=== PATIENT | male | born 1995 | race Caucasian/White ===

== ENCOUNTER 2025-01-21 11:05 | Emergency (ER) | payer OTHER, SELFPAY ==
[2025-01-21 11:39] VITALS: BP 120/85; PULSE 75; RESP 20; TEMP 36.2; O2SAT 99
--- NOTE | 2025-01-21 15:58 | ED_ITS ---
HPI - Headache General Chief Complaint: Headache Stated Complaint: HEADACHE/DIZZY/CHILLS/SWEATS Time Seen by Provider: 01/21/25 12:00 Source: patient and RN notes reviewed Mode of arrival: ambulatory Limitations: no limitations History of Present Illness HPI Narrative: 29-year-old male presents Express Care complaining of headache, chills, congestion, for approximately 10 days. Patient denies any photophobia or phonophobia, nausea, vomiting, vision changes, blurry vision, lightheadedness, loss of consciousness, dizziness, chest pain, shortness of breath, or any other symptoms. Patient reports the headache feels like a rubber band around his head. Patient rates at a 3/10. Patient states the headache is not going away. Patient also feels chills and body aches. Patient also states that he may feel little congested but denies any mucopurulent drainage or any nasal discharge. Has been taking ibuprofen as needed for pain with some relief. Patient denies any rashes or any recent travel out of the country. Patient to go to [place] approximately 2 weeks ago and says there out hiking but denies any bug bites or tick bites. Patient said his girlfriend had similar symptoms to him as well. Patient also reports some pain behind his neck. Related Data Allergies Allergy/AdvReac Type Severity Reaction Status Date / Time No Known Allergies Allergy Verified 01/21/25 11:38 Review of Systems Review of Systems: CONSTITUTIONAL: Denies fever, chills, or sweats. EYES: Denies visual changes, redness, blurry vision, or discharge. ENT: Denies rhinorrhea,, sore throat, or otalgia. Positive for congestion. CARDIOVASCULAR: Denies chest pain, palpitations, loss of consciousness, dizziness, lightheadedness, or edema. RESPIRATORY: Denies cough or dyspnea. GASTROINTESTINAL: Denies abdominal pain, nausea, vomiting, or diarrhea. GENITOURINARY: Denies dysuria or hematuria. SKIN: Denies rash or itching. MUSCULOSKELETAL: Denies back pain, joint pain, or myalgia. NEUROLOGIC: Denies, numbness, focal weakness, slurred speech, facial droop, or weakness. Positive for headache and neck pain. PSYCHIATRIC: Denies anxiety or depression. All other systems reviewed are negative, except as documented in HPI. PMFSH Comments At the time of my signature, I reviewed and agree with the nursing past medical, surgical, social, and family history. There is no relevant family history pertinent to the patient complaint. Exam Narrative: GENERAL: This is a well-nourished, well-developed adult, in no apparent distress. They are non ill-appearing, nontoxic appearing. HEAD: normocephalic, atraumatic. EYES: Sclera clear/white. Conjunctiva normal. Vision is grossly intact. Extraocular movements intact. Pupils PERRLA. EARS: External ears normal, auditory canals clear and without drainage, TMs normal without perforation. Hearing grossly intact. NOSE: External nose normal with no obvious nasal discharge, nasal turbinates erythematous, no rhinorrhea. THROAT: Mucous membranes moist, posterior pharynx clear, without erythema or swelling. Uvula midline. NECK: Neck supple, non-tender without lymphadenopathy, masses or thyromegaly. Mild tenderness to palpation to the back of the neck. No midline tenderness, no cervical point tenderness no, no crepitus, step-offs. CARDIOVASCULAR: Regular rate and rhythm without murmurs, gallops, or rubs. RESPIRATORY: Clear to auscultation. Breath sounds equal bilaterally. No wheezes, rales, or rhonchi. SKIN: warm, Dry, intact with no suspicious lesions or rash, good texture and turgor. NEURO: awake, alert, and oriented to person, place and time. There were no obvious focal neurologic abnormalities. No pronator drift. No limb ataxia. No facial droop. Speech is clear and comprehensive. Gait is steady. EXTREMITIES: No joint tenderness, effusion, or edema noted. BACK: Nontender without deformity. No CVA tenderness. Course Course Emergency Course: Portions of this record may have been created with voice recognition software Level of Care: Express Care Visit Vital Signs Vital signs: Vital Signs Temperature 97.1 F L 01/21/25 11:39 Pulse Rate 75 01/21/25 11:39 Respiratory Rate 20 01/21/25 11:39 Blood Pressure 120/85 01/21/25 11:39 Pulse Oximetry 99 01/21/25 11:39 Oxygen Delivery Room Air 01/21/25 11:39 Temperature 97.1 F L 01/21/25 11:39 Pulse Rate 75 01/21/25 11:39 Respiratory Rate 20 01/21/25 11:39 Blood Pressure 120/85 01/21/25 11:39 Pulse Oximetry 99 01/21/25 11:39 Oxygen Delivery Room Air 01/21/25 11:39 Reviewed MDM - Headache MDM Narrative Medical decision making narrative: Patient's symptoms appear to be a tension headache, however given patient's persistent congestion go ahead and treat for sinus infection with Augmentin. Will also treat patient with ketorolac as needed for pain. Discussed physical exam findings. Advised supportive measures and signs/symptoms to go to the ER. Pt is appropriate for outpt treatment and f/u. Differential Diagnosis Differential diagnosis: Likely migraine, tension headache, headache and si nusitis Critical Care Time Critical Care Time Critical Care Time: No Discharge Plan Discharge Clinical Impression: Headache Qualifiers: Headache type: tension-type Headache chronicity pattern: acute headache Intractability: not intractable Qualified Code(s): G44.209 - Tension-type headache, unspecified, not intractable Sinusitis Qualifiers: Sinusitis location: unspecified location Chronicity: acute Recurrence: non- recurrent Qualified Code(s): J01.90 - Acute sinusitis, unspecified Patient Disposition: Home Condition: Stable Instructions: Antibiotic Form, Sinusitis (ED), Tension Headache (ED) Additional Instructions: Take the antibiotics as directed and complete the course even if you start to feel better. You may use a Neti pot saline rinse 3 times a day with lukewarm distilled water Use a humidifier or vaporizer at night. Drink plenty of water. 8-10 glasses per day. Use flonase 2 times per day for 5 days then as needed Take mucinex 2 times per day and be sure to take with 8oz of water. Follow up with Primary provider in 3-5 days Take ketorolac as directed. Start the ketorolac tomorrow. Do not combine ketorolac with any other NSAIDs such as ibuprofen, Motrin, Naprosyn, naproxen. You may also take Tylenol as needed for pain. You May take ketorolac up to 5 days. Please go to the ER if you develops any difficulty breathing, worsening symptoms, vision changes, dizziness, lightheadedness, loss of conscious, one- sided weakness, worse headache of her life, facial drooping, slurred speech, confusion or any other concerns Patient Language: Vietnamese Prescriptions: New amoxicillin-pot clavulanate 875-125 mg tablet 1 tablet PO Q12H 7 Days Qty: 14 0RF ketorolac 10 mg tablet 10 mg PO Q6H PRN (Reason: pain) 5 Days Qty: 20 0RF Rx Instructions: maximum total duration of 5 days from all oral, intranasal, or parenteral formulations Follow-up/Referrals: PHYSICIAN,JIG BUILDER HELPER [Primary Care Provider] - Time of Disposition: 12:12
== END 2025-01-21 12:26 | disposition home or self-care (01) ==
DX: G44.209 Tension-type headache, unspecified, not intractable (principal); J01.90 Acute sinusitis, unspecified
CPT/HCPCS: 99203; G0463

== ENCOUNTER 2025-01-29 08:50 | Emergency (ER) | payer OTHER, SELFPAY ==
[2025-01-29 09:01] VITALS: BP 128/74; PULSE 82; RESP 16; TEMP 36.1; O2SAT 98
--- NOTE | 2025-01-29 09:02 | ED.URI ---
HPI - URI/Sore Throat General Chief Complaint: Upper Respiratory Infection Stated Complaint: Strep Symptoms Time Seen by Provider: 01/29/25 09:03 History of Present Illness HPI Narrative: 29-year-old male presented with complaint of sore throat. Onset yesterday. Also feels like the glands on the right side of his neck are swollen. Patient was seen on 01/21, given Augmentin for sinusitis, which he completed yesterday. Denies nasal congestion or postnasal drainage, cough, difficulty maintaining secretions, nausea vomiting, fevers or chills. Related Data Allergies Allergy/AdvReac Type Severity Reaction Status Date / Time No Known Allergies Allergy Verified 01/29/25 08:57 Review of Systems Review of Systems: CONSTITUTIONAL: Denies body aches, fever, chills, or sweats. EYES: Denies visual changes, redness, or discharge. ENT: reports sore throat Denies rhinorrhea, congestion, or otalgia. CARDIOVASCULAR: Denies chest pain, palpitations, or edema. RESPIRATORY: Denies dyspnea. GASTROINTESTINAL: Denies abdominal pain, nausea, vomiting, or diarrhea. SKIN: Denies rash NEUROLOGIC: Denies headache Exam Narrative: GENERAL: well-appearing, no acute distress. EYES: conjunctivae clear ENT: Mucous membranes moist. TM pearly christensen with normal light reflex bilaterally; no tragal tenderness. Oropharynx erythematous with ulcer lesion approx 0.5cm diameter to left soft palate. No swelling or exudate. No drooling, no hoarseness, no trismus, uvula midline. No tripod positioning, hot potato voice, or soft palate swelling. NECK: Supple. right anterior cervical lymphadenopathy CHEST: Clear to auscultation, breath sounds equal. No respiratory distress, speaks in full sentences. HEART: Regular rate and rhythm. No murmur heard. SKIN: Warm, dry, no rash. NEURO: Alert and oriented x3. Course Course Emergency Course: Patient is aware of diagnosis, understands and agrees to treatment plan. Anticipatory guidance given. Patient agrees to follow-up as directed and is aware of reasons to seek care at the emergency department. Portions of this record may have been created with voice recognition software Level of Care: Express Care Visit MDM - URI/Sore Throat MDM Narrative Medical decision making narrative: neg strep result reviewed with pt. Noted to have aphthous ulcer to left soft palate, Advise supportive treatments. Patient is appropriate for outpatient treatment and follow-up. Differential Diagnosis Differential diagnosis: Likely upper respiratory infection, viral infection and pharyngitis Discharge Plan Discharge Clinical Impression: Aphthous ulcer Patient Disposition: Home Condition: Stable Instructions: Antibiotic Form, Gingivostomatitis (ED) Additional Instructions: Tylenol every 8 hours as needed for pain/fever Avoid foods that irritate your mouth. These may include nuts, chips, pretzels, certain spices, salty foods and acidic fruits, such as pineapple, grapefruit and oranges. Regular brushing after meals and flossing once a day can keep your mouth clean and free of foods that might trigger a sore. Use a soft brush to help prevent irritation to delicate mouth tissues, and avoid toothpastes and mouth rinses that contain sodium lauryl sulfate Soft foods, cool liquids, warm tea. Gargle with warm saltwater twice a day. Chloraseptic spray and throat lozenges. Rest and stay hydrated. dexamethasone elixir as directed: 5 mL swish and spit three to four times daily. It is important to keep the medication in the mouth for five minutes prior to spitting it out. Do not rinse afterward and avoid eating or drinking for 30 minutes Consult your doctor if you experience: ? Unusually large canker sores ? Recurring sores, with new ones developing before old ones heal, or frequent outbreaks ? Persistent sores, lasting two weeks or more ? Sores that extend into the lips themselves ? Pain that you can't control with self-care measures ? Extreme difficulty eating or drinking ? High fever along with canker sores --Follow up with your PCP --Go to the ER immediately if you cannot swallow your saliva, trouble breathing/wheezing, throat swelling, pain is persistent and severe Rapid strep swab was negative today You will be notified in a few days if the culture comes back positive for strep, and appropriate antibiotics will be called in at that time. if symptoms are due to a viral illness, it is not treated with antibiotics. Viral symptoms can be present for up to 10-14 days. Patient Language: Kenyan Prescriptions: New dexamethasone 0.5 mg/5 mL elixir 0.5 mg PO QID Qty: 237 0RF Rx Instructions: swish and spit lidocaine HCl [Lidocaine Viscous] 2 % solution 1 applic mucous membrane TID PRN (Reason: pain) Qty: 100 0RF Rx Instructions: apply with cotton swab to site of pain Follow-up/Referrals: PHYSICIAN,MOTOR AND GENERATOR BRUSH MAKER [Primary Care Provider] - Time of Disposition: 09:11
[2025-01-29 09:07] LABS: EDSTREPNEGPOS1 Negative (Negative)
== END 2025-01-29 09:13 | disposition home or self-care (01) ==
PROVIDERS: Emergency Provider Nurse Practitioner Family
DX: K12.0 Recurrent oral aphthae (principal)
CPT/HCPCS: 87081; 87880; 99213; G0463